=== PATIENT | male | born 1970 | race Caucasian/White ===

== ENCOUNTER 2020-03-19 13:56 | Emergency (ER) | payer OTHER ==
[~2020-03-19] VITALS: Ht 180.3 cm; Wt 70.5 kg
[2020-03-19 16:00] VITALS: BP 102/64
== END 2020-03-19 16:00 | disposition home or self-care (01) | DRG 951 ==
LOC: ED 13:56
DX: Z20.828 Contact with and (suspected) exposure to other viral communicable diseases (principal)